=== PATIENT | male | born 1980 | race Caucasian/White ===

== ENCOUNTER 2019-05-26 20:19 | Emergency (ER) | payer MEDICARE, MEDICAID ==
--- NOTE | 2019-05-26 21:21 | ER Document Report ---
ED Medical Screen (RME) - General Chief Complaint: Abdominal Pain Stated Complaint: FOREIGN IN NOSE AND STOMACH Time Seen by Provider: 05/26/19 21:15 Primary Care Provider: KEILA PEREZ MD [Primary Care Provider] - Follow up as needed Notes: Patient is a 39-year-old male who presents to the emergency department with a chief complaint of abdominal pain that he has had for the past 1 to 2 months. Patient states that he feels like he has a moving sensation is in his abdomen and states that he feels like he has a possible tapeworm. Patient states that he is having normal bowel movements. Patient also states that he feels like he has worms in his nose. Exam: Purulent drainage noted to nasal mucosa. Soft, nontender abdomen. I have greeted and performed a rapid initial assessment of this patient. A comp rehensive ED assessment and evaluation of the patient, analysis of test results and completion of medical decision making process will be conducted by an additional ED providers. TRAVEL OUTSIDE OF THE [place] IN LAST 30 DAYS: No - Related Data Allergies/Adverse Reactions: No Known Allergies Allergy (Verified 10/05/11 18:45) Past Medical History - Social History Chew tobacco use (# tins/day): No Drug Abuse: Marijuana Past Surgical History: Reports: Hx Orthopedic Surgery - surgery left shoulder - Immunizations Hx Diphtheria, Pertussis, Tetanus Vaccination: Yes Physical Exam - Vital signs Vitals: Temp Pulse Resp BP Pulse Ox 98.2 F 91 16 124/75 96 05/26/19 20:24 05/26/19 20:24 05/26/19 20:24 05/26/19 20:24 05/26/19 20:24 Course - Vital Signs Vital signs: Temp Pulse Resp BP Pulse Ox 98.2 F 91 16 124/75 96 05/26/19 20:24 05/26/19 20:24 05/26/19 20:24 05/26/19 20:24 05/26/19 20:24 Doctor's Discharge - Discharge Referrals: KEILA PEREZ MD [Primary Care Provider] - Follow up as needed
[2019-05-26 22:13] LABS: ABSOLUTE EOSINOPHILS # (AUTO) 0.3 10^3/uL (0.0-0.6); ABSOLUTE LYMPHOCYTES (AUTO) 2.2 10^3/uL (0.5-4.7); ABSOLUTE MONOCYTES (AUTO) 0.8 10^3/uL (0.1-1.4); ABSOLUTE NEUT (AUTO) 4.6 10^3/uL (1.7-8.2); BASOPHILS % (AUTO) 0.5 % (0-2); EOSINOPHILS % (AUTO) 3.8 % (0-6); HEMATOCRIT 43.9 % (37.9-51.0); HEMOGLOBIN 15.2 g/dL (13.5-17.0); LYMPHOCYTES % (AUTO) 27.7 % (13-45); MEAN CORPUSCULAR HEMOGLOBIN 29.9 pg (27.0-33.4); MEAN CORPUSCULAR HGB CONC 34.5 g/dL (32.0-36.0); MEAN CORPUSCULAR VOLUME 87 fl (80-97); PLATELET COUNT 318 10^3/uL (150-450); RED BLOOD COUNT 5.08 10^6/uL (4.35-5.55); RED CELL DISTRIBUTION WIDTH 13.3 % (11.5-14.0); TOTAL CELLS COUNTED % (AUTO) 100 %
[2019-05-26 22:24] LABS: APPEARANCE,URINE CLEAR; BILIRUBIN,URINE NEGATIVE (NEGATIVE); COLOR,URINE YELLOW; GLUCOSE, URINE NEGATIVE (NEGATIVE); KETONES,URINE NEGATIVE (NEGATIVE); LEUKOCYTE ESTERASE,URINE NEGATIVE (NEGATIVE); NITRITE,URINE NEGATIVE (NEGATIVE); PROTEIN,URINE NEGATIVE (NEGATIVE); URINE SPECIFIC GRAVITY 1.027; UROBILINOGEN,URINE NEGATIVE mg/dL (<2.0)
[2019-05-26 22:30] LABS: ALBUMIN 4.5 g/dL (3.5-5.0); ALKALINE PHOSPHATASE 73 U/L (38-126); ANION GAP 11 (5-19); ASPARTATE AMINO TRANSFERASE 31 U/L (17-59); BILIRUBIN,DIRECT 0.3 mg/dL (0.0-0.4); BILIRUBIN,TOTAL 0.4 mg/dL (0.2-1.3); BLOOD UREA NITROGEN 13 mg/dL (7-20); CALCIUM 9.5 mg/dL (8.4-10.2); CARBON DIOXIDE 26 mmol/L (22-30); CHLORIDE 102 mmol/L (98-107); GLUCOSE 88 mg/dL (75-110); POTASSIUM 4.4 mmol/L (3.6-5.0); TOTAL PROTEIN 8.2 g/dL (6.3-8.2)
[2019-05-26 22:38] LABS: ALCOHOL < 10 mg/dL (NONE DETECTED)
[2019-05-26 22:41] LABS: URINE AMPHETAMINES SCREEN NEGATIVE; URINE BARBITURATES SCREEN NEGATIVE; URINE BENZODIAZEPINES SCREEN NEGATIVE; URINE METHADONE SCREEN NEGATIVE; URINE PHENCYCLIDINE SCREEN NEGATIVE
--- NOTE | 2019-05-26 22:45 | EKG REPORT ---
SEVERITY:- NORMAL ECG - SINUS RHYTHM : Confirmed by: Seble Morton MD 26-May-2019 22:45:16
[2019-05-26 23:08] LABS: URINE COCAINE SCREEN UNCONFIRMED POSITIVE; URINE MARIJUANA (THC) SCREEN UNCONFIRMED POSITIVE
--- NOTE | 2019-05-27 00:15 | ER Document Report ---
ED General - General Chief Complaint: Abdominal Pain Stated Complaint: FOREIGN IN NOSE AND STOMACH Time Seen by Provider: 05/26/19 21:15 Primary Care Provider: KEILA PEREZ MD [Primary Care Provider] - Follow up in 3-5 days NAOMI HELM DO [ASSOCIATE] - Follow up as needed RAUL MOORE MD [ACTIVE STAFF] - Follow up as needed Mode of Arrival: Ambulatory Information source: Patient Notes: This 39-year-old male presents emergency department with complaints of possible worm in his nose and something wiggling in his belly. Patient reports he had a sinus infection February 2019 through March 2019. He reports he was treated with antibiotics. He reports that since March he feels like something is in his left nostril something wiggling. He also reports that something feels like it is wiggling in his belly. He has not lost weight. He reports he has been eating drinking voiding bowel movement is normal. Reports he had a last bowel movement last night which was normal. Patient has not noticed any change in his stools. Patient reports he went to the urgent care today and they did not find anything up his nose. He reports he would only lift up his nose because he was told they could only look at one complaint at a time due to his insurance. He denies fever vomiting diarrhea. TRAVEL OUTSIDE OF THE [place] IN LAST 30 DAYS: No - HPI Onset: Other Onset/Duration: Persistent Quality of pain: No pain Associated symptoms: None Exacerbated by: Denies Relieved by: Denies Similar symptoms previously: Yes Recently seen / treated by doctor: Yes - Related Data Allergies/Adverse Reactions: No Known Allergies Allergy (Verified 10/05/11 18:45) Past Medical History - General Information source: Patient - Social History Smoking Status: Current Every Day Smoker Cigarette use (# per day): Yes Chew tobacco use (# tins/day): No Drug Abuse: Marijuana Occupation: None Lives with: Alone Family History: None Patient has suicidal ideation: No Patient has homicidal ideation: No Pulmonary Medical History: Reports: Hx Asthma Psychiatric Medical History: Reports: Hx Schizophrenia Past Surgical History: Reports: Hx Orthopedic Surgery - surgery left shoulder - Immunizations Hx Diphtheria, Pertussis, Tetanus Vaccination: Yes Review of Systems - Review of Systems Notes: Review HPI for review of systems., All other systems negative Physical Exam - Vital signs Vitals: Temp Pulse Resp BP Pulse Ox 98.2 F 91 16 124/75 96 05/26/19 20:24 05/26/19 20:24 05/26/19 20:24 05/26/19 20:24 05/26/19 20:24 - HEENT Head: Normocephalic Eyes: Normal Conjunctiva: Normal Extraocular movements intact: Yes Eyelashes: Normal Pupils: PERRL Ears: Normal External canal: Normal Tympanic membrane: Normal Sinus: Normal Nasal: Normal. No: Bloody discharge, Purulent discharge Mouth/Lips: Normal Mucous membranes: Normal, Moist Pharynx: Normal Neck: Normal, Supple. No: Lymphadenopathy - Respiratory Respiratory status: No respiratory distress Chest status: Nontender Breath sounds: Normal Chest palpation: Normal - Cardiovascular Rhythm: Regular Heart sounds: Normal auscultation Murmur: No - Abdominal Inspection: Normal Distension: No distension Bowel sounds: Normal Tenderness: Nontender Organomegaly: No organomegaly - Back Back: Normal, Nontender - Extremities General upper extremity: Normal ROM General lower extremity: Normal ROM - Neurological Neuro grossly intact: Yes Cognition: Normal Orientation: AAOx4 [place] Coma Scale Eye Opening: Spontaneous [place] Coma Scale Verbal: Oriented [place] Coma Scale Motor: Obeys Commands [place] Coma Scale Total: 15 Speech: Normal - Psychological Associated symptoms: Normal affect, Normal mood - Skin Skin Temperature: Warm Skin Moisture: Dry Skin Color: Normal Course - Re-evaluation Re-evalutation: 05/27/19 03:53 39-year-old male presents with complaints of a warm up his left nostril and something wiggling in his belly. Physical exam was benign. Patient was advised to follow-up with ENT and GI. Stool sample was obtained and he was instructed that he would be notified should he need treatment. He verbalized understanding to all instructions. Laboratory 05/26/19 05/26/19 05/26/19 21:51 21:51 21:51 WBC 8.0 RBC 5.08 Hgb 15.2 Hct 43.9 MCV 87 MCH 29.9 MCHC 34.5 RDW 13.3 Plt Count 318 Lymph % (Auto) 27.7 [place] % (Auto) 10.0 Eos % (Auto) 3.8 Baso % (Auto) 0.5 Absolute Neuts (auto) 4.6 Absolute Lymphs (auto) 2.2 Absolute Monos (auto) 0.8 Absolute Eos (auto) 0.3 Absolute Basos (auto) 0.0 Seg Neutrophils % 58.0 Sodium 139.2 Potassium 4.4 Chloride 102 Carbon Dioxide 26 Anion Gap 11 BUN 13 Creatinine 0.84 Est GFR ( Amer) > 60 Est GFR (MDRD) Non-Af > 60 Glucose 88 Calcium 9.5 Total Bilirubin 0.4 Direct Bilirubin 0.3 Neonat Total Bilirubin Not Reportable Neonat Direct Bilirubin Not Reportable Neonat Indirect Bili Not Reportable AST 31 ALT 53 H Alkaline Phosphatase 73 Total Protein 8.2 Albumin 4.5 Lipase 172.5 Urine Color YELLOW Urine Appearance CLEAR Urine pH 5.0 Ur Specific [place] 1.027 Urine Protein NEGATIVE Urine Glucose (UA) NEGATIVE Urine Ketones NEGATIVE Urine Blood NEGATIVE Urine Nitrite NEGATIVE Urine Bilirubin NEGATIVE Urine Urobilinogen NEGATIVE Ur Leukocyte Esterase NEGATIVE Urine WBC (Auto) 1 Urine RBC (Auto) 0 Squamous Epi Cells Auto <1 Urine Mucus (Auto) MOD Urine Ascorbic Acid 40 H Urine Opiates Screen Urine Methadone Screen Ur Barbiturates Screen Ur Phencyclidine Scrn Ur Amphetamines Screen U Benzodiazepines Scrn Urine Cocaine Screen U Marijuana (THC) Screen Serum Alcohol < 10 05/26/19 21:51 WBC RBC Hgb Hct MCV MCH MCHC RDW Plt Count Lymph % (Auto) [place] % (Auto) Eos % (Auto) Baso % (Auto) Absolute Neuts (auto) Absolute Lymphs (auto) Absolute Monos (auto) Absolute Eos (auto) Absolute Basos (auto) Seg Neutrophils % Sodium Potassium Chloride Carbon Dioxide Anion Gap BUN Creatinine Est GFR ( Amer) Est GFR (MDRD) Non-Af Glucose Calcium Total Bilirubin Direct Bilirubin Neonat Total Bilirubin Neonat Direct Bilirubin Neonat Indirect Bili AST ALT Alkaline Phosphatase Total Protein Albumin Lipase Urine Color Urine Appearance Urine pH Ur Specific [place] Urine Protein Urine Glucose (UA) Urine Ketones Urine Blood Urine Nitrite Urine Bilirubin Urine Urobilinogen Ur Leukocyte Esterase Urine WBC (Auto) Urine RBC (Auto) Squamous Epi Cells Auto Urine Mucus (Auto) Urine Ascorbic Acid Urine Opiates Screen NEGATIVE Urine Methadone Screen NEGATIVE Ur Barbiturates Screen NEGATIVE Ur Phencyclidine Scrn NEGATIVE Ur Amphetamines Screen NEGATIVE U Benzodiazepines Scrn NEGATIVE Urine Cocaine Screen UNCONFIRMED POSITIVE U Marijuana (THC) Screen UNCONFIRMED POSITIVE Serum Alcohol 05/27/19 03:54 - Vital Signs Vital signs: Temp Pulse Resp BP Pulse Ox 97.5 F 96 20 113/72 97 05/27/19 00:37 05/27/19 00:37 05/27/19 00:37 05/27/19 00:37 05/27/19 00:37 - Laboratory Result Diagrams: 05/26/19 21:51 05/26/19 21:51 Laboratory results interpreted by me: 05/26/19 05/26/19 21:51 21:51 ALT 53 H Urine Ascorbic Acid 40 H Discharge - Discharge Clinical Impression: abdominal concerns, foreign body in nose concern Condition: Stable Disposition: HOME, SELF-CARE Instructions: ENT, Gastroenterology Additional Instructions: *You have been evaluated for abdominal concerns and concerns of foreign body in your nose. *We have collected stool samples. You may contact the culture nurse at [phone] Monday through Monday 8 AM to 4 PM for your results *Monitor your stools Follow-up with ENT within 1 week Follow-up with gastroenterology within 1 week Return to the emergency department for concerns worsening condition abdominal pain Referrals: KEILA PEREZ MD [Primary Care Provider] - Follow up in 3-5 days NAOMI HELM DO [ASSOCIATE] - Follow up as needed RAUL MOORE MD [ACTIVE STAFF] - Follow up as needed
[2019-05-27 00:42] VITALS: BP 113/72
== END 2019-05-27 00:39 | disposition home or self-care (01) ==
LOC: ER 20:19
DX: R10.9 Unspecified abdominal pain (principal); T17.1XXA Foreign body in nostril, initial encounter; X58.XXXA Exposure to other specified factors, initial encounter; F17.210 Nicotine dependence, cigarettes, uncomplicated; J45.909 Unspecified asthma, uncomplicated
CPT/HCPCS: 36415; 80053; 80307; 81001; 83690; 85025; 87177; 93005; 93010; 99283